=== PATIENT | female | born 1990 | race Caucasian/White ===

== ENCOUNTER 2019-01-09 17:58 | Emergency (ER) | payer SELFPAY ==
[2019-01-09 18:10] VITALS: BP 117/67; PULSE 73; RESP 20; TEMP 36.4; O2SAT 100
--- NOTE | 2019-01-09 18:21 | ED_ITS ---
HPI - Abdominal Pain General Chief Complaint: Abdominal Pain Stated Complaint: stomach and chest pains x2 wks Time Seen by Provider: 01/09/19 18:00 Source: patient Mode of arrival: Ambulatory Limitations: no limitations History of Present Illness HPI narrative: 28-year-old female, daily smoker with history of GERD presents with her and a chief complaint of 2 weeks of gradually worsening epigastric pain with radiation up into her chest. She has some nausea. She states her pain is worse with eating and with lying flat. She states initially it felt similar to prior episodes under but has become more intense. She states that she has not been taking her medications since she moved here from [place]. She denies any recent international travel, exposure to bad food MD complaint: abdominal pain Onset (ago): week(s) Pain Consistency: constant Location: epigastric Severity: moderate Quality: aching and burning Radiation: epigastric Relieving factors: nothing Exacerbating factors: eating Associated symptoms: nausea Related Data Previous Rx's Medication Instructions Recorded pantoprazole [Protonix] 40 mg PO DAILY #30 tab 01/09/19 Allergies Allergy/AdvReac Type Severity Reaction Status Date / Time Penicillins Allergy Verified 01/09/19 21:25 Sulfa (Sulfonamide Allergy Verified 01/09/19 21:25 Antibiotics) Review of Systems Constitutional Constitutional: Denies chills, Denies fatigue, Denies fever(s), Denies frequent falls, Denies lethargy and Denies weakness Eyes Eyes: Denies change in vision, Denies eye discharge, Denies irritation and Denies loss of vision ENT Ears, Nose, Mouth, and Throat: Denies change in voice, Denies dizziness, Denies neck pain, Denies sore throat and Denies throat swelling Cardiovascular Cardiovascular: Denies chest pain, Denies irregular heart rhythm, Denies lightheadedness, Denies palpitations, Denies dyspnea, Denies dyspnea on exertion and Denies orthopnea Respiratory Respiratory: Denies cough, Denies dyspnea, Denies dyspnea on exertion and Denies wheezing Gastrointestinal Gastrointestinal: Reports abdominal pain, Denies change in bowel habits, Denies diarrhea, Reports nausea and Denies vomiting Genitourinary Genitourinary: Denies hematuria, Denies flank pain, Denies urinary incontinence and Denies urinary urgency Musculoskeletal Musculoskeletal: Denies back pain, Denies muscle weakness, Denies neck pain, Denies numbness and Denies tingling Integumentary/Breasts Skin/Breast: Denies pruritus, Denies erythema, Denies rash and Denies wounds Neurologic Neurologic: Denies behavioral changes, Denies confusion, Denies dizziness, Denies frequent falls, Denies loss of vision, Denies numbness, Denies tingling and Denies weakness Psychiatric Psychiatric: Denies anxiety, Denies behavioral changes, Denies confusion, Denies depression, Denies homicidal ideation and Denies suicidal ideation Endocrine Endocrine: Denies fatigue, Denies flushing and Denies palpitations Hematologic/Lymphatic Hematologic/Lymphatic: Denies easy bruising Allergic/Immunologic Allergic/Immunologic: Denies urticaria, Denies throat swelling and Denies wheezing Patient History Social History Smoking Status: Current every day smoker Social History Smoking Status: Current every day smoker tobacco type: cigarettes alcohol intake frequency: holidays/special occasions only Substance Use Type: marijuana Exam Narrative Exam Narrative: GENERAL: [28] year old patient appears stated age. Well- nourished, well-developed patient, in mild distress. HEAD: Atraumatic. Normocephalic. EYES: Pupils equal round and reactive. Extraocular motions intact. No scleral icterus. No injection or drainage. ENT: Nose without bleeding, purulent drainage. Throat without erythema, tonsillar hypertrophy or exudate. Airway patent. NECK: Trachea midline. Non tender CARDIOVASCULAR: Regular rate and rhythm without murmurs, gallops, or rubs. RESPIRATORY: Clear to auscultation. Breath sounds equal bilaterally. No wheezes, rales, or rhonchi. GASTROINTESTINAL: Abdomen soft, tender in the epigastrium, nondistended. EXTREMITIES: No edema or joint tenderness. BACK: Nontender without deformity or crepitance. No flank tenderness. NEURO: AOx3. SKIN: No rash or erythema of visible areas Initial Vital Signs Initial Vital Signs: Vital Signs Temperature 97.6 F 01/09/19 18:10 Pulse Rate 73 01/09/19 18:10 Respiratory Rate 20 01/09/19 18:10 Blood Pressure 117/67 01/09/19 18:10 Pulse Oximetry 100 01/09/19 18:10 Course Orders Ordered: ED Orders 01/09/19 18:40 Complete Blood Count AUTO DIFF Stat Comprehensive Metabolic Panel Stat Lipase Stat Partial Thromboplastin Time Stat Prothrombin Time INR Stat 01/09/19 19:30 US abdomen limited Stat Discontinued Medications Al Hydrox/Mg Hydrox/Simethicone 20 ml/ Lidocaine HCl 15 ml 0 ml PO NOW ONE Stop: 01/09/19 19:30 Last Admin: 01/09/19 19:53 Dose: 30 ml Documented by: SAMUEL Sodium Chloride (Normal Saline 0.9%) 1,000 mls @ 1,000 mls/hr IV BOLUS ONE Stop: 01/09/19 20:28 Last Admin: 01/09/19 20:46 Dose: Not Given Documented by: SAMUEL Pantoprazole Sodium (Protonix) 40 mg IV NOW ONE Stop: 01/09/19 19:30 Last Admin: 01/09/19 20:46 Dose: Not Given Documented by: SAMUEL Vital Signs Vital signs: Vital Signs - 8 hr 01/09/19 18:10 01/09/19 20:55 Temperature 97.6 F Pulse Rate 73 72 Respiratory Rate 20 18 Blood Pressure 117/67 Blood Pressure [Right Arm] 107/62 Pulse Oximetry 100 100 MDM - Abdominal Pain Lab Data Result diagrams: 01/09/19 18:40 01/09/19 18:40 Labs: Lab Results 01/09/19 01/09/19 01/09/19 Range/Units 18:40 18:40 18:40 WBC 7.4 (4.5-11.0) X10^3/uL RBC 3.62 L (4.0-5.2) X10^6/uL Hgb 9.1 L (12.0-16.0) g/dL Hct 29.0 L (36-46) % MCV 80.3 (80-100) fL MCH 25.1 L (26-34) PG MCHC 31.2 (30-36) % RDW 18.1 H (11.6-14.8) % Plt Count 86 L (150-400) X10^3/uL Neut % (Auto) 53.5 (50-75) % Lymph % (Auto) 40.0 (25-40) % [place] % (Auto) 4.6 (3-14) % Eos % (Auto) 1.1 L (2-4) % Baso % (Auto) 0.8 (0-2) % Neut # (Auto) 4000 (1243-4985) /uL Lymph # (Auto) 3000 (3106-6197) /uL [place] # (Auto) 300 (0-900) /uL Eos # (Auto) 100 (0-450) /uL Baso # (Auto) 100 (0-100) /uL PT 9.0 L (10.1-12.7) SECONDS INR 0.8 L (0.9-1.3) APTT 18 L (26.4-36.2) SECONDS Sodium 140 (137-145) mmol/L Potassium 4.3 (3.4-5.1) mmol/L Chloride 105 (98-107) mmol/L Carbon Dioxide 27 (22-32) mmol/L BUN 16 (7-17) mg/dL Creatinine 0.40 L (0.52-1.04) mg/dL Estimated GFR > 60.0 (>60) mL/min BUN/Creatinine Ratio 40.0 H (6-22) Glucose 73 (70-100) mg/dL Calcium 9.0 (8.4-10.2) mg/dL Total Bilirubin 0.4 (0.2-1.3) mg/dL AST 39 H (14-36) IU/L ALT 17 (9-52) IU/L Alkaline Phosphatase 43 (38-126) U/L Total Protein 7.0 (6.3-8.2) g/dL Albumin 4.0 (3.5-5.0) g/dL Globulin 3.0 (1.7-4.1) g/dL Albumin/Globulin Ratio 1.3 (1.0-2.8) Lipase 256 (23-300) U/L Point of care testing: Point of Care Testing Test Results Negative Urine Dip Bedside Urine Glucose Negative Bedside Urine Bilirubin + 1 Bedside Urine Ketone - Negative Urine Specific [employer] 1.030 Bedside Urine Occult Blood - Negative Bedside Urine pH 6.0 Bedside Urine Protein - Negative Bedside Urine Urobilinogen - Negative Bedside Urine Nitrite - Negative Bedside Urine Leukocytes - Negative Esterase Imaging Data US - abdomen: Radiologist's impression: [address] [address] Ultrasound Report Signed Patient: Sobia LopezeMR#: [id number] : 1990Acct:[id number] Age/Sex: 28 / FDate of Service: 01/09/19 Loc: ED Accession Number: [id number] Procedure: US abdomen limited Ordering Provider: Lawrence Borrero D.O. PROCEDURE: US ABDOMEN LIMITED INDICATIONS: EPIGASTRIC PAIN TECHNIQUE: Real-time scanning was performed of the abdominal and retroperitoneal organs, with image documentation. COMPARISON: None. FINDINGS: Liver: Liver is normal in size and homogeneous in echotexture. Gallbladder: The gallbladder is surgically absent. Biliary ducts: Intrahepatic bile ducts are non-dilated. Extrahepatic bile duct caliber measures 2.5 mm. Normal is 6-7 mm or less in diameter, or 10 mm or less post-cholecystectomy. Pancreas: Visualized portions of the head and body the pancreas appear mildly enlarged. No discrete mass is visualized. IMPRESSION: 1. Questionable enlargement of the pancreas. If further characterization is warranted, CT of the abdomen with contrast is recommended. 2. No intrahepatic or extrahepatic biliary ductal dilatation. Dictated by: Josiane Page M.D. on 01/09/2019 at 21:00 Approved by: Josiane Page M.D. on 01/09/2019 at 21:01 [facility] Narrative Medical decision making narrative: Multiple etiologies for patient's symptoms considered including: [GERD versus pancreatitis (ultrasound considered but no biochemical evidence of pancreatitis) vs. other] Patient's symptoms improved or duration of stay with above-stated therapies. Findings and discharge diagnosis discussed with patient/family followed by cathleen balization of understanding Return precautions discussed with patient/family whom verbalize understanding. Discharge Plan Departure Patient Disposition: Home Clinical Impression: Acute epigastric pain Discharge Date/Time: 01/09/19 21:22 Instructions: DI for Epigastric Pain Activity Restrictions/Additional Instructions: *You have been diagnosed with acute epigastric *What to do: *Take medications as directed: Continue taking your reflux medications *Follow up with your primary care provider in 2-3 days, call for an appointment. Let them know you were seen in the Emergency Department and that we ask that you be seen in follow up *Return to ER if you should have any new, worsening or concerning symptoms Prescriptions: New pantoprazole [Protonix] 40 mg tablet,delayed release (DR/EC) 40 mg PO DAILY Qty: 30 RF: 0 Referrals: [facility] [Outside]
--- NOTE | 2019-01-09 18:42 | PC.NURSE ---
2 attempts at IV failed, labs drawn by this EDRN.
[2019-01-09 18:52] LABS: Add Manual Diff / Slide Review NO; Basophils Absolute Auto 100 /uL (0-100); Basophils Percent Auto 0.8 % (0-2); Eosinophils Absolute Auto 100 /uL (0-450); Eosinophils Percent Auto 1.1 % (2-4); Hemoglobin 9.1 g/dL (12.0-16.0); Lymphocytes Absolute Auto 3000 /uL (1100-4500); Mean Corpuscular HGB Conc 31.2 % (30-36); Mean Corpuscular Hemoglobin 25.1 PG (26-34); Mean Corpuscular Volume 80.3 fL (80-100); Monocytes Absolute Auto 300 /uL (0-900); Monocytes Percent Auto 4.6 % (3-14); Neutrophils Absolute Auto 4000 /uL (1500-7000); Neutrophils Percent Auto 53.5 % (50-75); Platelet Count 86 X10^3/uL (150-400); Red Blood Cell Count 3.62 X10^6/uL (4.0-5.2); Red Cell Distribution Width 18.1 % (11.6-14.8); White Blood Cell Count 7.4 X10^3/uL (4.5-11.0)
[2019-01-09 18:54] LABS: INR 0.8 (0.9-1.3)
[2019-01-09 18:56] LABS: PTT Partial Thromboplastin Tim 18 SECONDS (26.4-36.2)
[2019-01-09 18:59] LABS: Alanine Aminotransferase 17 IU/L (9-52); Albumin Globulin Ratio 1.3 (1.0-2.8); Alkaline Phosphatase 43 U/L (38-126); Aspartate Aminotransferase 39 IU/L (14-36); Bilirubin Total 0.4 mg/dL (0.2-1.3); Blood Urea Nitrogen 16 mg/dL (7-17); Carbon Dioxide 27 mmol/L (22-32); Chloride 105 mmol/L (98-107); Estimated Glomerular Filt Rate > 60.0 mL/min (>60); Glucose 73 mg/dL (70-100); HEMOLYSIS 47 (0-50); Lipase 256 U/L (23-300); Potassium 4.3 mmol/L (3.4-5.1); Sodium 140 mmol/L (137-145)
--- NOTE | 2019-01-09 19:30 | DI.US.S_ITS ---
PROCEDURE: US ABDOMEN LIMITED INDICATIONS: EPIGASTRIC PAIN TECHNIQUE: Real-time scanning was performed of the abdominal and retroperitoneal organs, with image documentation. COMPARISON: None. FINDINGS: Liver: Liver is normal in size and homogeneous in echotexture. Gallbladder: The gallbladder is surgically absent. Biliary ducts: Intrahepatic bile ducts are non-dilated. Extrahepatic bile duct caliber measures 2.5 mm. Normal is 6-7 mm or less in diameter, or 10 mm or less post-cholecystectomy. Pancreas: Visualized portions of the head and body the pancreas appear mildly enlarged. No discrete mass is visualized. IMPRESSION: 1. Questionable enlargement of the pancreas. If further characterization is warranted, CT of the abdomen with contrast is recommended. 2. No intrahepatic or extrahepatic biliary ductal dilatation. Dictated by: Josiane Page M.D. on 01/09/2019 at 21:00 Approved by: Josiane Page M.D. on 01/09/2019 at 21:01
[2019-01-09] MEDS: MAG HYDROX/ALUMINUM/SIMETH SUS 20 ML, LIDOCAINE VISCOUS 2% 15 ML PO (19:53)
[2019-01-09 20:55] VITALS: BP 107/62; PULSE 72; RESP 18; O2SAT 100
== END 2019-01-09 21:22 | disposition home or self-care (01) ==
PROVIDERS: Emergency Provider Emergency Medicine
DX: R10.13 Epigastric pain (principal)
CPT/HCPCS: 36415; 76705; 80053; 81003; 81025; 83690; 85025; 85610; 85730; 93005; 99283; 99285; C9113